=== PATIENT | male | born 1985 | race Caucasian/White ===

== ENCOUNTER 2019-09-18 18:43 | Inpatient (IN) | payer OTHER ==
[~2019-09-18] VITALS: Ht 188 cm; Wt 75.3 kg
[2019-09-18 18:48] VITALS: BP 112/67
[2019-09-18 21:21] LABS: ABSOLUTE NEUTROPHILS 6.6 thou/uL (1.4-8.2); BASOPHILS 0.5 % (0.0-2.0); EOSINOPHILS 2.7 % (0.0-3.0); HEMATOCRIT 45.8 % (42.0-52.0); HEMOGLOBIN 15.7 gm/dL (14.0-18.0); LYMPHOCYTES 17.7 % (24.0-44.0); MCH 30.2 pg (26.0-34.0); MCHC 34.3 g/dL (28.0-37.0); MCV 88.2 fL (80.0-100.0); MONOCYTES 6.2 % (1.0-8.0); PLATELET COUNT 240 thou/uL (150-400); POLYS 72.9 % (36.0-66.0); RDW 12.8 % (10.5-14.5); WBC 9.1 thou/uL (4.0-11.0)
[2019-09-18 21:28] LABS: CALCIUM 8.6 mg/dL (8.5-10.1); POTASSIUM 3.8 mmol/L (3.5-5.1)
[2019-09-18 21:47] VITALS: BP 119/80
[2019-09-18 21:49] VITALS: BP 119/80
[2019-09-18 22:45] VITALS: BP 118/69
--- NOTE | 2019-09-19 00:17 | NUR ---
PT ARRIVED FROM THE ER 2234 VIA W/C A&OX4 DENIES PAIN DURING ASSESSEMENT. NPO AFTER MIDNIGHT FOR SX TOMORROW. PT UP ADLIB. ADIMISSION DONE AND PT ORIENTED TO THE UNIT. CALL LIGHT IN REACH AND WILL CONT WITH POC TILL EOS.
[2019-09-19 04:08] VITALS: BP 104/67
[2019-09-19 08:09] VITALS: BP 112/63
[2019-09-19 16:23] VITALS: BP 108/60
--- NOTE | 2019-09-19 16:33 | NUR ---
Assumed care of pt at 0700. Pt denies pain. Up ad grisel. Pre-op covid test sent to lab. Surgery on 09/19. Family at bedside. Call light within reach. Will continue to monitor.
[2019-09-19 16:55] VITALS: BP 98/47
--- NOTE | 2019-09-19 19:41 | NUR ---
1900 ASSUMED CARE OF PT 1930 BASELINE ASSESSMENT COMPLETED, PT DENIES PAIN, HERNIA APPEARS TO REMAIN REDUCED, WILL KEEP NPO AFTER MIDNIGHT AND CONTINUE TO MONITOR
[2019-09-19 21:40] VITALS: BP 116/68
[2019-09-20 04:30] VITALS: BP 109/62
[2019-09-20 07:10] VITALS: BP 103/62
--- NOTE | 2019-09-20 08:38 | NUR ---
ASSUMED CARE OF PT AT 0130. RESTING COMFORTABLY. NO NEEDS VOICED. CALL LIGHT WITHIN REACH. FREQUENT OBSERVATION.
--- NOTE | 2019-09-20 09:40 | NUR ---
ASSUMED PT CARE AT 0700. PT ALERT X ORIENTED X4. NPO SINCE MIDNIGHT FOR RT INGUINAL HERNIA REPAIR. RESTING COMFORTABLY IN BED. NO PAIN. CALL LIGHT IN REACH. WILL CONT TO MONITOR.
[2019-09-20 11:00] VITALS: BP 103/62
[2019-09-20 14:15] VITALS: BP 116/68
[2019-09-20 17:09] VITALS: BP 116/68
--- NOTE | 2019-10-05 06:36 | O ---
[facility] [place] [address] OPERATIVE REPORT Name: JANNA LAMB Room #: 434-P [facility] IN M.R.#: [id number] Admission: 09/18/19 Attend Phys: Elliot Anderson, Discharge: 09/20/19 Date of : 89 Report #: [id number] THIS REPORT FOR: cc: Diamante Amado MD, Megan E. MD Patterson, Jonathan D. MD ~ CC: Elliot Amado DATE OF SERVICE: 09/20/2019 POSTOPERATIVE DIAGNOSIS: Right inguinal hernia. POSTOPERATIVE DIAGNOSIS: Right inguinal hernia. OPERATION: Laparoscopic repair of right inguinal hernia with mesh. SURGEON: Elliot Anderson MD ANESTHESIA: General. ESTIMATED BLOOD LOSS: Minimal. SPECIMEN: None. DESCRIPTION OF PROCEDURE: After informed consent was obtained, the patient was brought to the operating room and placed supine. The patient had voided right before coming back to surgery. SCDs were placed and working, preoperative antibiotics were administered, general anesthesia was induced. The abdomen was prepped and draped in the usual sterile fashion. A 10 mm incision was made below the umbilicus. Fascia was incised and a trocar was placed. Pneumoperitoneum was established. A 5 mm left lower quadrant and 5 mm right upper quadrant trocars were placed under direct vision. The peritoneum at the right ASIS was scored. The peritoneum was then incised and reflected inferiorly. This allowed visualization of the pubic bone and the cord structures. He had a fairly large indirect inguinal hernia. All of the hernia sac was carefully reduced. Cord structures were protected at all times. I inserted a medium Bard 3DMax mesh. It was tacked to Humberto's ligament with 2 absorbable tacks. The peritoneum was then reapproximated with the tacker as well. The mesh was widely covered. The ports were then removed under direct vision. The fascia at the umbilicus was closed with a [id number] 0 Vicryl. Skin was closed with 4-0 Monocryl. [facility] [address] [place] [address] OPERATIVE REPORT Name: JANNA LAMB Room #: 434-P [facility] IN ..#: [id number] Admission: 09/18/19 Attend Phys: Elliot Anderson, Discharge: 09/20/19 Date of : 89 Report #: [id number] Incisions were sealed with Dermabond. COMPLICATIONS: None. DISPOSITION: The patient was taken to recovery in satisfactory condition. <ELECTRONICALLY SIGNED> By: Elliot Anderson MD 10/05/19 0636 [id number] Elliot Anderson MD /nt
== END 2019-09-20 18:05 | disposition home or self-care (01) | DRG 352 ==
LOC: ER 18:43 → EROBS 21:19 → 4S 22:31
PROVIDERS: Emergency Medicine; ADMIT Surgery; ATTEND Surgery
PROC: 0YU54JZ Supplement Right Inguinal Region with Synthetic Substitute, Percutaneous Endoscopic Approach (ICD-10-PCS; principal; 2019-09-20)
DX: K40.90 Unilateral inguinal hernia, without obstruction or gangrene, not specified as recurrent (principal); F17.210 Nicotine dependence, cigarettes, uncomplicated; Z79.899 Other long term (current) drug therapy; Z03.818 Encounter for observation for suspected exposure to other biological agents ruled out
CPT/HCPCS: 10195; 50010; 50101; 50249; 50411; 50555; 50848; 52265; 52266; 53307; 53314; 54022; 54111; 54118; 56462; 56525; 56526; 62110; 62900; 70005